=== PATIENT | female | born 1965 | race Two or more races ===

== ENCOUNTER 2023-12-13 06:04 | Day surgery (SDC) | payer BC, SELFPAY ==
[2023-12-13] VITALS (9 sets, daily range): BP systolic 121–153; BP diastolic 75–89; BMI 22.8
[2023-12-13] MEDS: TYLENOL 1000 MG PO (06:53)
[2023-12-13] MEDS: NORMOSOL-R 1000 IV (06:54)
--- NOTE | 2023-12-13 09:11 | W.SUR.PREOP ---
Pre-Operative Surgical Note
-
I have examined this patient prior to the performance of the scheduled procedure.
The patient's condition is unchanged from the time of the current History and
Physical and the patient is able to undergo the scheduled procedure.
--- NOTE | 2023-12-13 09:11 | W.IMMPOSTOP ---
Surgical Immed Post Op Note
-
Primary Surgeon: GIANNI Wang MD
Assisting Surgeon:
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
Post-op Diagnosis: same
Procedure Performed: revision to the left reconstructed breast, fat grafting to the bilateral breasts, excision of abdominal dogears with adjacent tissue transfer.
Anesthesia Type: General
Specimen / Cultures: none
Estimated Blood Loss: 15 cc
complications: None
Operative Findings: as expected
--- NOTE | 2023-12-13 09:12 | OR.RPT ---
Operative Report
Operative Report
Surgeon: GIANNI Wang MD
Preoperative diagnosis:
1. Personal history of malignancy of breast
2. 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
Postoperative diagnosis: Same
Procedure:
1. Revision to the left reconstructed breast
2. Fat grafting to the bilateral breasts, 130 cc total
3. Excisional bilateral abdominal dogears 5 x 3 cm on right, 6 x 3.5 cm on left
4. Bilateral adjacent tissue transfer trunk, 5 x 3 cm on right, 6.5 x 3.5 cm on left
complications: None
Anesthesia: General
Specimens: None
Indication for procedure: Patient is a 58-year-old female with a history of left breast cancer. She had previously undergone lumpectomy and radiation therapy. She underwent mastectomy after being diagnosed with a recurrent left breast cancer. And
immediate D IEP flap reconstruction was performed. She healed well followed a routine postoperative course. She followed up approximately 1 year later with concerns over the asymmetry of her bilateral breast and residual dogears of the abdomen.
As such a plan was made for revision to the left reconstructed breast as well as fat grafting with donor site anterior abdomen and lateral flanks. The bilateral abdominal dogears will be excised adjacent tissue transfers would be performed. Risks
were reviewed including fat necrosis, scar, infection, hematoma, seroma. She understood these risk desired to proceed. Consents were signed accordingly
Procedure in detail: Patient was identified the preoperative area and the surgical site was confirmed via the bilateral breast and trunk. Consents were confirmed all questions were answered. Patient was taken back the operating placed supine on
the table. Anesthesia was induced and The patient was prepped and draped in the usual sterile fashion using ChloraPrep solution. Timeout for patient safety was performed was confirmed that preoperative antibiotics administered and bilateral SCDs
were in place. Procedure began first with the injection 1% lidocaine with epinephrine in the proposed focal sites. 15 blade was used to make focals in the prior abdominal incisions and at the inframammary fold. Tumescent solution consisting of 1
L of normal saline with 1 amp of epinephrine and 50 cc of 1% lidocaine were then injected into the subcutaneous tissues of the trunk and left lateral breast. Appropriate time was waited for the tumescent solution decided and then separation was
performed off suction using a 4 mm cannula. After this was performed suction was applied and fat was harvested from the anterior abdomen and bilateral trunk. Revision to the left reconstructed breast was performed with resection of the left
lateral breast flap for liposuction. This allowed for lateral contouring. The fat was then processed using the pure graft system. A total of approximately 600 cc of Lipo aspirate was removed. This was processed down 130 cc of fat graft. While
the fat was being processed, the bilateral abdominal dogears were addressed. The right and left were marked out accordingly for excision as documented above. The resultant wound was closed with an adjacent tissue transfer with superior medial
rotation of the skin to avoid persistent dogear. These were then closed in layers using 3-0 and 4-0 Monocryl. fat was first injected into the left superior pole at the level of contour deformity of the chest wall. Once this was corrected an
equivalent volume of 40 cc was placed into the right breast for symmetry. The patient was then flexed at the waist and the relative contours were evaluated. It was determined that additional fat needed to be placed in the left superior aspect of
the flap with larger volumes placed in the right side for symmetry. As such a total of 80 cc was placed on the right and 50 cc was placed in the left. Pedicles were closed with 5-0 fast. Patient tolerated procedure well was performed out
complication. All counts were correct at the end the case. Wounds were dressed. Patient was extubated taken the PACU for further care.
== END 2023-12-13 13:09 | disposition home or self-care (01) ==
LOC: SDS 06:04
PROVIDERS: ATTENDING PHYSICIAN Surgery Plastic and Reconstructive Surgery
DX: Z85.3 Personal history of malignant neoplasm of breast (principal); Z90.12 Acquired absence of left breast and nipple
CPT/HCPCS: 19380; 15771; 14001; 93005